=== PATIENT | male | born 1995 | race Caucasian/White ===

== ENCOUNTER 2017-04-11 17:37 | Inpatient (IN) | payer OTHER ==
[2017-04-11] MEDS: ONDANSETRON 4 MG INJ IV ×2 (21:01→22:00)
[2017-04-11] MEDS: SOD CHLORIDE 0.9% 1,000 ML IV ×2 (21:02→21:06)
[2017-04-11 21:37] LABS: MODE ROOM AIR; MetHgb Venous 1.7 %; Sample Type Blood venous; Site VENOUS LINE; Venous COHb 0.3 %; Venous Fraction OxyHgb 18.1 %; Venous Oxygen Sat 18.5 mmHG (55.0-75.0); Venous Total Hemglobin 15.4 g/dl
[2017-04-11 21:42] LABS: ADD MAN DIFF? NO
[2017-04-11 21:45] LABS: BASOPHILS % 0.1 % (0.0-2.0); EOSINOPHILS # 0.2 10^3/ul (0.0-0.5); EOSINOPHILS % 2.9 % (0.0-7.0); HEMATOCRIT 45.5 % (42.0-52.0); HEMOGLOBIN 15.4 g/dl (14.0-18.0); LYMPHOCYTES # 3.5 10^3/ul (0.8-2.9); MEAN CORPUSCULAR HEMOGLOBIN 30.3 pg (29.0-33.0); MEAN CORPUSCULAR HGB CONC 33.8 g/dl (32.0-37.0); MEAN CORPUSCULAR VOLUME 89.4 fl (82.0-101.0); MEAN PLATELET VOLUME 12.2 fl (7.4-10.4); MONOCYTE # 0.6 10^3/ul (0.3-0.9); MONOCYTES % 7.3 % (0.0-11.0); NEUTROPHIL # 3.9 10^3/ul (1.6-7.5); NEUTROPHILS % 47.6 % (39.0-77.0); PLATELET COUNT 147 10^3/UL (140-415); RED BLOOD COUNT 5.09 10^6/ul (4.70-6.10); RED CELL DISTRIBUTION WIDTH 11.9 % (11.5-14.5)
[2017-04-11 21:45] LABS: WHITE BLOOD COUNT 8.2 10^3/ul (4.8-10.8)
[2017-04-11 22:07] LABS: ANION GAP 27 (8-16); BLOOD UREA NITROGEN 21 mg/dl (7-20); CARBON DIOXIDE 12 mmol/L (21-31); CHLORIDE 99 mmol/L (97-110); CREATININE 1.16 mg/dl (0.61-1.24); GLUCOSE 380 mg/dl (70-220); POTASSIUM 4.9 mmol/L (3.5-5.1); SODIUM 133 mmol/L (135-144)
[2017-04-11] MEDS: LORAZEPAM 2 MG INJ IV (22:52)
[2017-04-11 23:17] LABS: MAGNESIUM 1.3 mg/dl (1.7-2.5)
[2017-04-11] MEDS: INSULIN HUMAN REGULAR 100 UNIT in SOD CHLORIDE 0.9% 99 ML IV (23:19)
[2017-04-11] MEDS: POTASSIUM CHLORIDE 30 MEQ in SOD CHLORIDE 0.9% 1,000 ML IV (23:24)
[2017-04-11] MEDS ORDERED: ACETAMINOPHEN 500 MG TAB PO (23:30)
[2017-04-11] MEDS ORDERED: hydrALAzine 20 MG INJ IV (23:30)
[2017-04-11] MEDS: METHYLPREDNISOLONE 40 MG INJ IV (23:37)
[2017-04-12 00:05] LABS: ADD UMIC NO; UR ASCORBIC ACID NEGATIVE (NEGATIVE); UR BILIRUBIN (Dip) NEGATIVE (NEGATIVE); UR BLOOD (Dip) NEGATIVE (NEGATIVE); UR CLARITY CLEAR (CLEAR); UR COLOR YELLOW (YELLOW); UR GLUCOSE (Dip) 3+ mg/dL (NEGATIVE); UR KETONES (Dip) 2+ mg/dL (NEGATIVE); UR LEUKOCYTE ESTERASE (Dip) NEGATIVE Leu/ul (NEGATIVE); UR NITRITE (Dip) NEGATIVE (NEGATIVE); UR SPECIFIC GRAVITY (Dip) 1.015 (1.003-1.030); UR TOTAL PROTEIN (Dip) NEGATIVE (NEGATIVE); UR UROBILINOGEN (Dip) NEGATIVE (NEGATIVE)
[2017-04-12] MEDS: HYDROCORTISONE 5 MG TAB PO ×4 (00:07→20:26)
[2017-04-12 01:14] LABS: ANION GAP 21 (8-16); BLOOD UREA NITROGEN 20 mg/dl (7-20); CALCIUM 9.5 mg/dl (8.4-10.2); CARBON DIOXIDE 15 mmol/L (21-31); CHLORIDE 106 mmol/L (97-110); GLUCOSE 272 mg/dl (70-220); SODIUM 136 mmol/L (135-144)
[2017-04-12] MEDS ORDERED: DEXTROSE 50% 50 ML SYRINGE IV ×2 (01:30)
[2017-04-12] MEDS ORDERED: POTASSIUM CHLORIDE 50 ML IVPB (01:30)
[2017-04-12] MEDS: ACCU-CHEK XX ×17 (01:59→20:25)
[2017-04-12 02:36] LABS: GLUCOSE, FASTING 125 mg/dl (70-110); PHOSPHORUS 1.5 mg/dl (2.5-4.9)
[2017-04-12] MEDS: DEXTROSE 5%-0.9% NACL 1,000 ML IV (02:36)
[2017-04-12 02:37] LABS: ANION GAP 15 (8-16); BLOOD UREA NITROGEN 19 mg/dl (7-20); CALCIUM 9.9 mg/dl (8.4-10.2); CARBON DIOXIDE 20 mmol/L (21-31); CHLORIDE 108 mmol/L (97-110); CREATININE 0.97 mg/dl (0.61-1.24); GLUCOSE 124 mg/dl (70-220); POTASSIUM 4.2 mmol/L (3.5-5.1); SODIUM 139 mmol/L (135-144)
[2017-04-12] MEDS: INSULIN HUMAN REGULAR 100 UNIT in SOD CHLORIDE 0.9% 99 ML IV ×2 (02:40→08:19)
[2017-04-12 02:46] LABS: MAGNESIUM 1.2 mg/dl (1.7-2.5)
[2017-04-12] MEDS: POTASSIUM CHLORIDE 30 MEQ in DEXTROSE 5%-0.9% NACL 1,000 ML IV ×4 (03:25→13:31)
[2017-04-12] MEDS: MAGNESIUM SULFATE 2 GM/50 ML 50 ML IVPB (04:29)
[2017-04-12 05:11] LABS: ANION GAP 11 (8-16); BLOOD UREA NITROGEN 16 mg/dl (7-20); CALCIUM 9.5 mg/dl (8.4-10.2); CARBON DIOXIDE 21 mmol/L (21-31); CHLORIDE 113 mmol/L (97-110); GLUCOSE 89 mg/dl (70-220); POTASSIUM 3.6 mmol/L (3.5-5.1); SODIUM 141 mmol/L (135-144)
[2017-04-12] MEDS: PANTOPRAZOLE 40 MG INJ IV (06:07)
[2017-04-12] MEDS: METHYLPREDNISOLONE 40 MG INJ IV ×2 (06:07→13:40)
[2017-04-12] MEDS: POTASSIUM PHOSPHATE 15 MM in SOD CHLORIDE 0.9% 250 ML IVPB (06:07)
[2017-04-12] MEDS: POTASSIUM CHLORIDE 100 ML IVPB (06:07)
[2017-04-12 07:02] LABS: ANION GAP 12 (8-16); BLOOD UREA NITROGEN 15 mg/dl (7-20); CALCIUM 9.4 mg/dl (8.4-10.2); CARBON DIOXIDE 20 mmol/L (21-31); CHLORIDE 113 mmol/L (97-110); CREATININE 0.79 mg/dl (0.61-1.24); GLUCOSE 121 mg/dl (70-220); POTASSIUM 3.9 mmol/L (3.5-5.1); SODIUM 141 mmol/L (135-144)
[2017-04-12] MEDS: POTASSIUM CHLORIDE (SR) 10 MEQ TAB PO (09:23)
[2017-04-12] MEDS: INSULIN GLARGINE [LANtus] 3 ML PEN SC (10:35)
[2017-04-12] MEDS: INSULIN ASPART [NOVOLOG] 3 ML PEN SC ×4 (12:17→20:28)
[2017-04-12 15:29] LABS: THYROID STIMULATING HORMONE < 0.015 MIU/L (0.465-4.680)
[2017-04-12] MEDS: ONDANSETRON 4 MG INJ IV (19:00)
[2017-04-13] MEDS: POTASSIUM CHLORIDE 30 MEQ in DEXTROSE 5%-0.9% NACL 1,000 ML IV (00:58)
[2017-04-13] MEDS: ACCU-CHEK XX ×19 (01:56→23:00)
[2017-04-13] MEDS: ONDANSETRON 4 MG INJ IV (02:29)
[2017-04-13] MEDS: INSULIN ASPART [NOVOLOG] 3 ML PEN SC ×2 (04:56→06:31)
[2017-04-13 04:57] LABS: ADD MAN DIFF? NO; BASOPHILS % 0.1 % (0.0-2.0); HEMATOCRIT 32.2 % (42.0-52.0); HEMOGLOBIN 10.9 g/dl (14.0-18.0); LYMPHOCYTES # 1.4 10^3/ul (0.8-2.9); LYMPHOCYTES % 11.4 % (15.0-51.0); MEAN CORPUSCULAR HEMOGLOBIN 30.6 pg (29.0-33.0); MEAN CORPUSCULAR HGB CONC 33.9 g/dl (32.0-37.0); MEAN CORPUSCULAR VOLUME 90.4 fl (82.0-101.0); MEAN PLATELET VOLUME 12.6 fl (7.4-10.4); MONOCYTE # 0.8 10^3/ul (0.3-0.9); MONOCYTES % 6.4 % (0.0-11.0); NEUTROPHIL # 9.8 10^3/ul (1.6-7.5); NEUTROPHILS % 81.8 % (39.0-77.0); PLATELET COUNT 161 10^3/UL (140-415); RED BLOOD COUNT 3.56 10^6/ul (4.70-6.10); RED CELL DISTRIBUTION WIDTH 12.7 % (11.5-14.5)
[2017-04-13] MEDS: PANTOPRAZOLE 40 MG INJ IV (05:12)
[2017-04-13 05:42] LABS: PHOSPHORUS 4.2 mg/dl (2.5-4.9)
[2017-04-13 05:43] LABS: BLOOD UREA NITROGEN 19 mg/dl (7-20); CALCIUM 9.7 mg/dl (8.4-10.2); CHLORIDE 109 mmol/L (97-110); CREATININE 1.07 mg/dl (0.61-1.24); MAGNESIUM 1.3 mg/dl (1.7-2.5); SODIUM 133 mmol/L (135-144)
[2017-04-13] MEDS: morphine 2 MG INJ IV (05:53)
[2017-04-13] MEDS: POTASSIUM CHLORIDE 30 MEQ in SOD CHLORIDE 0.45% 1,000 ML IV (06:05)
[2017-04-13 06:15] LABS: CARBON DIOXIDE 9 mmol/L (21-31)
[2017-04-13 06:17] LABS: GLUCOSE 532 mg/dl (70-220)
[2017-04-13 06:32] LABS: ANION GAP 22 (8-16)
[2017-04-13] MEDS ORDERED: DEXTROSE 50% 50 ML SYRINGE IV ×2 (07:00)
[2017-04-13] MEDS ORDERED: POTASSIUM CHLORIDE 50 ML IVPB (07:00)
[2017-04-13 07:24] LABS: POTASSIUM 6.5 mmol/L (3.5-5.1)
[2017-04-13] MEDS: INSULIN HUMAN REGULAR 100 UNIT in SOD CHLORIDE 0.9% 99 ML IV (07:30)
[2017-04-13] MEDS ORDERED: INSULIN GLARGINE [LANtus] 3 ML PEN SC (08:00)
[2017-04-13] MEDS: SOD CHLORIDE 0.9% 1,000 ML IV ×3 (08:13→21:10)
[2017-04-13] MEDS: MAGNESIUM SULFATE 2 GM/50 ML 50 ML IVPB (08:14)
[2017-04-13] MEDS: HYDROCORTISONE 5 MG TAB PO ×3 (10:27→21:08)
[2017-04-14] MEDS: ACCU-CHEK XX ×12 (01:00→19:42)
[2017-04-14] MEDS: PANTOPRAZOLE 40 MG INJ IV (05:34)
[2017-04-14] MEDS: SOD CHLORIDE 0.9% 1,000 ML IV (06:20)
[2017-04-14] MEDS: HYDROCORTISONE 5 MG TAB PO ×3 (08:12→20:48)
[2017-04-14] MEDS ORDERED: GLUCAGON 1 MG INJ IM (09:00)
[2017-04-14] MEDS ORDERED: GLUCOSE GEL 15 GRAM TUBE PO ×2 (09:00)
[2017-04-14] MEDS ORDERED: DEXTROSE 50% 50 ML SYRINGE IV (09:00)
[2017-04-14] MEDS ORDERED: GLUCOSE GEL 15 GRAM TUBE BUCCAL (09:00)
[2017-04-14 09:26] LABS: ANION GAP 13 (8-16); BLOOD UREA NITROGEN 11 mg/dl (7-20); CALCIUM 8.3 mg/dl (8.4-10.2); CARBON DIOXIDE 17 mmol/L (21-31); CHLORIDE 109 mmol/L (97-110); CREATININE 0.68 mg/dl (0.61-1.24); GLUCOSE 257 mg/dl (70-220); POTASSIUM 4.4 mmol/L (3.5-5.1); SODIUM 135 mmol/L (135-144)
[2017-04-14] MEDS: INSULIN DETEMIR [LEVEMIR] 3ML CART SC ×2 (09:41→21:30)
[2017-04-14] MEDS: INSULIN ASPART [NOVOLOG] 3 ML PEN SC ×5 (10:47→20:53)
[2017-04-14] MEDS ORDERED: INSULIN ASPART [NOVOLOG] 3 ML PEN SC ×3 (17:05)
[2017-04-14] MEDS: DEXTROSE 50% 50 ML SYRINGE IV (20:56)
[2017-04-15] MEDS: SOD CHLORIDE 0.9% 1,000 ML IV ×3 (03:38→20:00)
[2017-04-15] MEDS: PANTOPRAZOLE 40 MG INJ IV (06:00)
[2017-04-15 06:43] LABS: ANION GAP 12 (8-16); BLOOD UREA NITROGEN 8 mg/dl (7-20); CALCIUM 8.5 mg/dl (8.4-10.2); CARBON DIOXIDE 24 mmol/L (21-31); CHLORIDE 107 mmol/L (97-110); CREATININE 0.66 mg/dl (0.61-1.24); GLUCOSE 118 mg/dl (70-220); POTASSIUM 4.1 mmol/L (3.5-5.1); SODIUM 139 mmol/L (135-144)
[2017-04-15] MEDS ORDERED: INSULIN DETEMIR [LEVEMIR] 3ML CART SC ×3 (08:00→17:30)
[2017-04-15] MEDS: HYDROCORTISONE 5 MG TAB PO ×3 (08:19→20:35)
[2017-04-15] MEDS: INSULIN ASPART [NOVOLOG] 3 ML PEN SC ×7 (08:23→20:38)
[2017-04-15] MEDS: ACCU-CHEK XX ×4 (10:19→20:33)
[2017-04-15 12:40] LABS: ADD MAN DIFF? NO
[2017-04-15 12:42] LABS: WHITE BLOOD COUNT 6.1 10^3/ul (4.8-10.8)
[2017-04-15 12:42] LABS: EOSINOPHILS # 0.1 10^3/ul (0.0-0.5); EOSINOPHILS % 1.6 % (0.0-7.0); HEMATOCRIT 35.9 % (42.0-52.0); HEMOGLOBIN 12.5 g/dl (14.0-18.0); LYMPHOCYTES # 2.2 10^3/ul (0.8-2.9); LYMPHOCYTES % 35.3 % (15.0-51.0); MEAN CORPUSCULAR HEMOGLOBIN 30.2 pg (29.0-33.0); MEAN CORPUSCULAR HGB CONC 34.8 g/dl (32.0-37.0); MEAN CORPUSCULAR VOLUME 86.7 fl (82.0-101.0); MEAN PLATELET VOLUME 12.1 fl (7.4-10.4); MONOCYTE # 0.4 10^3/ul (0.3-0.9); MONOCYTES % 5.7 % (0.0-11.0); NEUTROPHIL # 3.5 10^3/ul (1.6-7.5); NEUTROPHILS % 57.2 % (39.0-77.0); PLATELET COUNT 155 10^3/UL (140-415); RED BLOOD COUNT 4.14 10^6/ul (4.70-6.10); RED CELL DISTRIBUTION WIDTH 11.8 % (11.5-14.5)
[2017-04-15 13:01] LABS: ANION GAP 12 (8-16); BLOOD UREA NITROGEN 11 mg/dl (7-20); CARBON DIOXIDE 23 mmol/L (21-31); CHLORIDE 104 mmol/L (97-110); CREATININE 0.71 mg/dl (0.61-1.24); GLUCOSE 308 mg/dl (70-220); POTASSIUM 4.3 mmol/L (3.5-5.1); SODIUM 135 mmol/L (135-144)
[2017-04-15] MEDS: NPH, HUMAN INSULIN ISOPHANE 3ML VIAL SC (13:48)
[2017-04-15 14:51] LABS: CREATININE, RANDOM URINE 121 mg/dL (20-370); MICROALBUMIN 0.7 mg/dL; MICROALBUMIN/CREATININE RATIO 6 (<30)
[2017-04-15] MEDS: INSULIN DETEMIR [LEVEMIR] 3ML CART SC (21:39)
[2017-04-16] MEDS: SOD CHLORIDE 0.9% 1,000 ML IV ×3 (02:13→16:00)
[2017-04-16] MEDS: PANTOPRAZOLE 40 MG INJ IV (05:53)
[2017-04-16 06:04] LABS: ADD MAN DIFF? NO
[2017-04-16 06:11] LABS: BASOPHILS % 0.3 % (0.0-2.0); EOSINOPHILS # 0.2 10^3/ul (0.0-0.5); EOSINOPHILS % 3.7 % (0.0-7.0); HEMATOCRIT 33.6 % (42.0-52.0); HEMOGLOBIN 11.9 g/dl (14.0-18.0); LYMPHOCYTES # 3.5 10^3/ul (0.8-2.9); LYMPHOCYTES % 52.9 % (15.0-51.0); MEAN CORPUSCULAR HEMOGLOBIN 30.2 pg (29.0-33.0); MEAN CORPUSCULAR HGB CONC 35.4 g/dl (32.0-37.0); MEAN CORPUSCULAR VOLUME 85.3 fl (82.0-101.0); MEAN PLATELET VOLUME 12.6 fl (7.4-10.4); MONOCYTE # 0.5 10^3/ul (0.3-0.9); MONOCYTES % 7.5 % (0.0-11.0); NEUTROPHIL # 2.3 10^3/ul (1.6-7.5); NEUTROPHILS % 35.4 % (39.0-77.0); PLATELET COUNT 163 10^3/UL (140-415); RED BLOOD COUNT 3.94 10^6/ul (4.70-6.10); RED CELL DISTRIBUTION WIDTH 11.5 % (11.5-14.5)
[2017-04-16 06:11] LABS: WHITE BLOOD COUNT 6.6 10^3/ul (4.8-10.8)
[2017-04-16 06:41] LABS: MAGNESIUM 1.3 mg/dl (1.7-2.5)
[2017-04-16 06:41] LABS: ANION GAP 12 (8-16); BLOOD UREA NITROGEN 11 mg/dl (7-20); CALCIUM 8.5 mg/dl (8.4-10.2); CARBON DIOXIDE 24 mmol/L (21-31); CHLORIDE 108 mmol/L (97-110); CREATININE 0.67 mg/dl (0.61-1.24); GLUCOSE 77 mg/dl (70-220); POTASSIUM 3.3 mmol/L (3.5-5.1); SODIUM 141 mmol/L (135-144)
[2017-04-16] MEDS: INSULIN ASPART [NOVOLOG] 3 ML PEN SC ×6 (08:15→17:17)
[2017-04-16] MEDS: HYDROCORTISONE 5 MG TAB PO ×2 (08:21→12:03)
[2017-04-16] MEDS: ACCU-CHEK XX ×5 (08:22→17:15)
[2017-04-16] MEDS: POTASSIUM CHLORIDE 20 MEQ POWDER FOR ORAL SOLN PO (12:04)
[2017-04-16] MEDS: MAGNESIUM SULFATE 4 GM/100 ML 100 ML IVPB (13:24)
[2017-04-16] MEDS ORDERED: INSULIN DETEMIR [LEVEMIR] 3ML CART SC (21:00)
== END 2017-04-16 18:40 | disposition home or self-care (01) | DRG 638 ==
LOC: ICU 23:03 → E/R 17:37 → MS2 04-15 14:45 → MS1 04-12 16:32
PROVIDERS: Internal Medicine
DX: E10.10 Type 1 diabetes mellitus with ketoacidosis without coma (principal); E27.40 Unspecified adrenocortical insufficiency; E31.0 Autoimmune polyglandular failure; E03.9 Hypothyroidism, unspecified; Z83.3 Family history of diabetes mellitus
CPT/HCPCS: 36415; 74176; 80048; 81003; 82043; 82803; 82947; 82962; 83036; 83735; 84100; 84443; 85025; 87081; 96361; 96365; 96366; 96375; 96376; 99291-25

== ENCOUNTER 2017-06-12 20:30 | Inpatient (IN) | payer OTHER ==
[2017-06-12] MEDS: FAMOTIDINE 20 MG INJ IV (21:29)
[2017-06-12] MEDS: ONDANSETRON 4 MG INJ IV (21:29)
[2017-06-12] MEDS: SOD CHLORIDE 0.9% 1,000 ML IV ×4 (21:29→23:48)
[2017-06-12] MEDS: morphine 2 MG INJ IV (21:29)
[2017-06-12 21:41] LABS: ADD MAN DIFF? NO
[2017-06-12 21:42] LABS: WHITE BLOOD COUNT 10.6 10^3/ul (4.8-10.8)
[2017-06-12 21:42] LABS: BASOPHILS % 0.2 % (0.0-2.0); EOSINOPHILS # 0.2 10^3/ul (0.0-0.5); HEMATOCRIT 45.9 % (42.0-52.0); HEMOGLOBIN 15.9 g/dl (14.0-18.0); LYMPHOCYTES # 3.7 10^3/ul (0.8-2.9); LYMPHOCYTES % 34.8 % (15.0-51.0); MEAN CORPUSCULAR HEMOGLOBIN 29.9 pg (29.0-33.0); MEAN CORPUSCULAR HGB CONC 34.6 g/dl (32.0-37.0); MEAN CORPUSCULAR VOLUME 86.3 fl (82.0-101.0); MEAN PLATELET VOLUME 12.7 fl (7.4-10.4); MONOCYTE # 0.8 10^3/ul (0.3-0.9); MONOCYTES % 7.1 % (0.0-11.0); NEUTROPHIL # 5.9 10^3/ul (1.6-7.5); NEUTROPHILS % 55.6 % (39.0-77.0); PLATELET COUNT 247 10^3/UL (140-415); RED BLOOD COUNT 5.32 10^6/ul (4.70-6.10); RED CELL DISTRIBUTION WIDTH 12.3 % (11.5-14.5)
[2017-06-12 22:07] LABS: ALANINE AMINOTRANSFERASE 21 IU/L (13-69); ALBUMIN 4.9 g/dl (3.3-4.9); ALBUMIN/GLOBULIN RATIO 1.58; ALKALINE PHOSPHATASE 103 IU/L (42-121); ANION GAP 28 (8-16); ASPARTATE AMINO TRANSFERASE 29 IU/L (15-46); BILIRUBIN,INDIRECT 0.6 mg/dl (0-1.1); BILIRUBIN,TOTAL 0.6 mg/dl (0.2-1.3); BLOOD UREA NITROGEN 21 mg/dl (7-20); CALCIUM 10.5 mg/dl (8.4-10.2); CARBON DIOXIDE 16 mmol/L (21-31); CHLORIDE 98 mmol/L (97-110); CREATININE 1.33 mg/dl (0.61-1.24); GLUCOSE 340 mg/dl (70-220); LIPASE 40 U/L (23-300); SODIUM 135 mmol/L (135-144)
[2017-06-12 22:12] LABS: POTASSIUM 6.6 mmol/L (3.5-5.1)
[2017-06-12] MEDS: NA POLYST SULFON 15 GM/60 ML BTL PO (22:26)
[2017-06-12] MEDS: CA CHLORIDE 10% 10 ML SYRINGE IV (22:26)
[2017-06-12] MEDS: NA BICARBONATE 8.4% 50 ML SYG IV (22:26)
[2017-06-12] MEDS: ALBUTEROL 0.5% (NEB) 2.5 MG/0.5 ML AMP INH (22:27)
[2017-06-12] MEDS: INSULIN REGULAR, HUMAN 100 UNIT/1 ML 3ML VIAL IVP (22:33)
[2017-06-12] MEDS: INSULIN HUMAN REGULAR 100 UNIT in SOD CHLORIDE 0.9% 99 ML IV (22:49)
[2017-06-12] MEDS ORDERED: DEXTROSE 50% 50 ML SYRINGE IV (23:00)
[2017-06-12] MEDS ORDERED: morphine 2 MG INJ IV (23:00)
[2017-06-12 23:27] LABS: ADD UMIC NO; UR ASCORBIC ACID NEGATIVE (NEGATIVE); UR BILIRUBIN (Dip) NEGATIVE (NEGATIVE); UR BLOOD (Dip) NEGATIVE (NEGATIVE); UR CLARITY CLEAR (CLEAR); UR COLOR STRAW (YELLOW); UR GLUCOSE (Dip) 3+ mg/dL (NEGATIVE); UR KETONES (Dip) 2+ mg/dL (NEGATIVE); UR LEUKOCYTE ESTERASE (Dip) NEGATIVE Leu/ul (NEGATIVE); UR NITRITE (Dip) NEGATIVE (NEGATIVE); UR SPECIFIC GRAVITY (Dip) 1.009 (1.003-1.030); UR TOTAL PROTEIN (Dip) NEGATIVE (NEGATIVE); UR UROBILINOGEN (Dip) NEGATIVE (NEGATIVE)
[2017-06-12] MEDS: ACCU-CHEK XX (23:29)
[2017-06-12] MEDS: LACTATED RINGER'S 1,000 ML IV (23:43)
[2017-06-12] MEDS ORDERED: INSULIN HUMAN REGULAR 100 UNIT in SOD CHLORIDE 0.9% 99 ML IV (23:45)
[2017-06-13 00:07] LABS: HEMOGLOBIN A1C 7.7 % (0-5.9)
[2017-06-13] MEDS: ACCU-CHEK XX ×8 (00:09→12:27)
[2017-06-13] MEDS: METOCLOPRAMIDE 10 MG INJ IV (00:12)
[2017-06-13 00:16] LABS: GLUCOSE, FASTING 181 mg/dl (70-110); PHOSPHORUS 2.8 mg/dl (2.5-4.9)
[2017-06-13] MEDS: DEXTROSE 5%-LR 1,000 ML IV ×2 (00:19→04:00)
[2017-06-13 00:35] LABS: ANION GAP 23 (8-16); BLOOD UREA NITROGEN 20 mg/dl (7-20); CALCIUM 10.7 mg/dl (8.4-10.2); CARBON DIOXIDE 13 mmol/L (21-31); CHLORIDE 108 mmol/L (97-110); CREATININE 1.02 mg/dl (0.61-1.24); POTASSIUM 4.1 mmol/L (3.5-5.1); SODIUM 140 mmol/L (135-144)
[2017-06-13 00:36] LABS: GLUCOSE 181 mg/dl (70-220)
[2017-06-13] MEDS: DEXTROSE 50% 50 ML SYRINGE IV (02:34)
[2017-06-13] MEDS: SOD CHLORIDE 0.9% 1,000 ML IV ×4 (02:43→09:00)
[2017-06-13 03:48] LABS: ANION GAP 16 (8-16); BLOOD UREA NITROGEN 19 mg/dl (7-20); CALCIUM 9.9 mg/dl (8.4-10.2); CARBON DIOXIDE 22 mmol/L (21-31); CHLORIDE 109 mmol/L (97-110); CREATININE 1.05 mg/dl (0.61-1.24); POTASSIUM 3.9 mmol/L (3.5-5.1); SODIUM 143 mmol/L (135-144)
[2017-06-13 03:56] LABS: GLUCOSE 43 mg/dl (70-220)
[2017-06-13] MEDS: SOD CHLORIDE 0.9% 500 ML IV (04:41)
[2017-06-13 06:13] LABS: PHOSPHORUS 3.3 mg/dl (2.5-4.9)
[2017-06-13] MEDS: ENOXAPARIN 30 MG/0.3 ML SYG SC (09:35)
[2017-06-13 11:35] LABS: MODE ROOM AIR; MetHgb Venous 0.4 %; Sample Type Blood venous; Site VENOUS LINE; Venous COHb 0.2 %; Venous Fraction OxyHgb 68.5 %; Venous Oxygen Sat 68.9 mmHG (55.0-75.0); Venous Total Hemglobin 13.9 g/dl
[2017-06-13] MEDS ORDERED: GLUCAGON 1 MG INJ IM (14:00)
[2017-06-13] MEDS ORDERED: GLUCOSE GEL 15 GRAM TUBE PO ×2 (14:00)
[2017-06-13] MEDS ORDERED: GLUCOSE GEL 15 GRAM TUBE BUCCAL (14:00)
[2017-06-13] MEDS ORDERED: DEXTROSE 50% 50 ML SYRINGE IV ×2 (14:00)
[2017-06-13] MEDS ORDERED: METOCLOPRAMIDE 10 MG INJ IV (15:00)
[2017-06-13] MEDS: PANTOPRAZOLE (EC) 40 MG TAB PO (17:00)
[2017-06-13] MEDS: PT'S OWN INSULIN PUMP (Humalog) SC ×2 (17:01→20:43)
[2017-06-13] MEDS: ACETAMINOPHEN 650MG/20.3ML CUP PO (18:39)
[2017-06-14] MEDS: PANTOPRAZOLE (EC) 40 MG TAB PO (06:00)
[2017-06-14] MEDS: PT'S OWN INSULIN PUMP (Humalog) SC ×4 (07:20→20:59)
[2017-06-14] MEDS: ENOXAPARIN 30 MG/0.3 ML SYG SC (08:55)
[2017-06-14 13:38] LABS: ALANINE AMINOTRANSFERASE 20 IU/L (13-69); ALBUMIN 3.3 g/dl (3.3-4.9); ALBUMIN/GLOBULIN RATIO 1.17; ALKALINE PHOSPHATASE 65 IU/L (42-121); ANION GAP 15 (8-16); ASPARTATE AMINO TRANSFERASE 20 IU/L (15-46); BILIRUBIN,INDIRECT 0.4 mg/dl (0-1.1); BILIRUBIN,TOTAL 0.4 mg/dl (0.2-1.3); BLOOD UREA NITROGEN 9 mg/dl (7-20); CALCIUM 8.6 mg/dl (8.4-10.2); CARBON DIOXIDE 22 mmol/L (21-31); CHLORIDE 107 mmol/L (97-110); CREATININE 0.81 mg/dl (0.61-1.24); GLUCOSE 109 mg/dl (70-220); POTASSIUM 3.9 mmol/L (3.5-5.1); SODIUM 140 mmol/L (135-144); TOTAL PROTEIN 6.1 g/dl (6.1-8.1)
[2017-06-14 13:47] LABS: CREATININE, RANDOM URINE 54 mg/dL (20-370); MICROALBUMIN 0.2 mg/dL; MICROALBUMIN/CREATININE RATIO 4 (<30)
[2017-06-14] MEDS: HYDROCORTISONE 5 MG TAB PO ×2 (14:55→20:56)
[2017-06-14 17:11] LABS: MAGNESIUM 1.2 mg/dl (1.7-2.5)
[2017-06-14] MEDS: MAGNESIUM SULFATE 4 GM/100 ML 100 ML IVPB (19:55)
[2017-06-14] MEDS: INSULIN LISPRO 100 UNIT/ML VIAL SC (20:00)
[2017-06-15 06:14] LABS: ANION GAP 16 (8-16); THYROID STIMULATING HORMONE 0.022 MIU/L (0.465-4.680)
[2017-06-15 06:15] LABS: BLOOD UREA NITROGEN 10 mg/dl (7-20); CALCIUM 8.9 mg/dl (8.4-10.2); CARBON DIOXIDE 19 mmol/L (21-31); CHLORIDE 110 mmol/L (97-110); CREATININE 0.82 mg/dl (0.61-1.24); GLUCOSE 111 mg/dl (70-220); PHOSPHORUS 4.4 mg/dl (2.5-4.9); POTASSIUM 4.1 mmol/L (3.5-5.1); SODIUM 141 mmol/L (135-144)
[2017-06-15] MEDS: PANTOPRAZOLE (EC) 40 MG TAB PO (06:15)
[2017-06-15 06:42] LABS: ADD MAN DIFF? NO
[2017-06-15 07:10] LABS: FREE THYROXINE INDEX (Calc) 2.35 ug/ml (0.65-3.89); T4 (THYROXINE) 6.7 ug/dl (5.5-11.0)
[2017-06-15] MEDS: PT'S OWN INSULIN PUMP (Humalog) SC ×2 (07:56→11:10)
[2017-06-15] MEDS: HYDROCORTISONE 5 MG TAB PO ×2 (09:36→15:42)
[2017-06-15] MEDS: ENOXAPARIN 30 MG/0.3 ML SYG SC (09:40)
[2017-06-15 09:55] LABS: HEMATOCRIT 33.7 % (42.0-52.0); HEMOGLOBIN 11.9 g/dl (14.0-18.0); MEAN CORPUSCULAR HEMOGLOBIN 30.3 pg (29.0-33.0); MEAN CORPUSCULAR HGB CONC 35.3 g/dl (32.0-37.0); MEAN CORPUSCULAR VOLUME 85.8 fl (82.0-101.0); RED BLOOD COUNT 3.93 10^6/ul (4.70-6.10); RED CELL DISTRIBUTION WIDTH 12.4 % (11.5-14.5)
[2017-06-15 09:55] LABS: WHITE BLOOD COUNT 6.4 10^3/ul (4.8-10.8)
[2017-06-15 09:56] LABS: LYMPHOCYTES % 38.7 % (15.0-51.0); MEAN PLATELET VOLUME 12.6 fl (7.4-10.4); MONOCYTES % 6.7 % (0.0-11.0); PLATELET COUNT 150 10^3/UL (140-415)
[2017-06-15 09:57] LABS: EOSINOPHILS # 0.2 10^3/ul (0.0-0.5); EOSINOPHILS % 3.1 % (0.0-7.0); LYMPHOCYTES # 2.5 10^3/ul (0.8-2.9); MONOCYTE # 0.4 10^3/ul (0.3-0.9); NEUTROPHIL # 3.3 10^3/ul (1.6-7.5)
[2017-06-15 09:58] LABS: BASOPHILS % 0.3 % (0.0-2.0)
[2017-06-15 13:30] LABS: MAGNESIUM 2.1 mg/dl (1.7-2.5)
== END 2017-06-15 17:29 | disposition home or self-care (01) | DRG 638 ==
LOC: ICU 22:45 → E/R 20:30 → MS1 06-13 17:45
PROVIDERS: Internal Medicine
DX: E10.10 Type 1 diabetes mellitus with ketoacidosis without coma (principal); E27.40 Unspecified adrenocortical insufficiency; E31.0 Autoimmune polyglandular failure; E06.3 Autoimmune thyroiditis; E83.42 Hypomagnesemia; Z79.4 Long term (current) use of insulin; Z96.41 Presence of insulin pump (external) (internal)
CPT/HCPCS: 36415; 80048; 80053; 81003; 82043; 82803; 82947; 82962; 83036; 83690; 83735; 84100; 84436; 84443; 84479; 85025; 87081; 93005; 94664; 96361; 96365; 96366; 96375; 99291-25

== ENCOUNTER 2017-11-17 00:44 | Inpatient (IN) | payer OTHER ==
[2017-11-17] MEDS: ONDANSETRON 4 MG INJ IV ×2 (02:05→02:27)
[2017-11-17] MEDS: SOD CHLORIDE 0.9% 1,000 ML IV ×8 (02:06→23:00)
[2017-11-17] MEDS: SOD CHLORIDE 0.9% 680 ML IV (02:06)
[2017-11-17 02:09] LABS: ADD MAN DIFF? NO
[2017-11-17 02:12] LABS: ABNORMAL IP MESSAGE 1; BASOPHIL # 0.1 10^3/ul (0.0-0.1); BASOPHILS % 0.3 % (0.0-2.0); EOSINOPHILS # 0.3 10^3/ul (0.0-0.5); EOSINOPHILS % 1.4 % (0.0-7.0); HEMATOCRIT 43.2 % (42.0-52.0); HEMOGLOBIN 14.9 g/dl (14.0-18.0); LYMPHOCYTES # 3.2 10^3/ul (0.8-2.9); LYMPHOCYTES % 17.8 % (15.0-51.0); MEAN CORPUSCULAR HEMOGLOBIN 30.5 pg (29.0-33.0); MEAN CORPUSCULAR HGB CONC 34.5 g/dl (32.0-37.0); MEAN CORPUSCULAR VOLUME 88.3 fl (82.0-101.0); MEAN PLATELET VOLUME 13.3 fl (7.4-10.4); MONOCYTE # 1.1 10^3/ul (0.3-0.9); MONOCYTES % 5.8 % (0.0-11.0); NEUTROPHIL # 13.4 10^3/ul (1.6-7.5); NEUTROPHILS % 74.1 % (39.0-77.0); PLATELET COUNT 223 10^3/UL (140-415); POSITIVE DIFF @See below; RED BLOOD COUNT 4.89 10^6/ul (4.70-6.10); RED CELL DISTRIBUTION WIDTH 12.3 % (11.5-14.5)
[2017-11-17 02:12] LABS: WHITE BLOOD COUNT 18.1 10^3/ul (4.8-10.8)
[2017-11-17 02:21] LABS: MODE ROOM AIR; MetHgb Venous 0.3 %; Sample Type Blood venous; Site VENOUS LINE; Venous COHb 0.3 %; Venous Fraction OxyHgb 41.7 %; Venous Total Hemglobin 14.2 g/dl
[2017-11-17] MEDS: METOCLOPRAMIDE 10 MG INJ IV (02:27)
[2017-11-17 02:29] LABS: ALANINE AMINOTRANSFERASE 19 IU/L (13-69); ALBUMIN 4.8 g/dl (3.3-4.9); ALBUMIN/GLOBULIN RATIO 1.26; ALKALINE PHOSPHATASE 99 IU/L (42-121); ANION GAP 26 (8-16); ASPARTATE AMINO TRANSFERASE 32 IU/L (15-46); BILIRUBIN,INDIRECT 0.9 mg/dl (0-1.1); BILIRUBIN,TOTAL 0.9 mg/dl (0.2-1.3); BLOOD UREA NITROGEN 22 mg/dl (7-20); CALCIUM 10.7 mg/dl (8.4-10.2); CARBON DIOXIDE 12 mmol/L (21-31); CHLORIDE 101 mmol/L (97-110); CREATININE 1.22 mg/dl (0.61-1.24); GLUCOSE 344 mg/dl (70-220); LIPASE 40 U/L (23-300); MAGNESIUM 1.2 mg/dl (1.7-2.5); PHOSPHORUS 3.9 mg/dl (2.5-4.9); SODIUM 133 mmol/L (135-144); TOTAL PROTEIN 8.6 g/dl (6.1-8.1)
[2017-11-17 02:37] LABS: LACTIC ACID 5.2 mmol/L (0.5-2.0)
[2017-11-17 02:37] LABS: POTASSIUM 6.4 mmol/L (3.5-5.1)
[2017-11-17] MEDS ORDERED: SODIUM CHLORIDE 23.4% 77 MEQ in DEXTROSE 10% 1,000 ML IV (02:38)
[2017-11-17] MEDS ORDERED: SOD CHLORIDE 0.9% 1,000 ML IV ×2 (02:38→03:39)
[2017-11-17] MEDS ORDERED: POTASSIUM CHLORIDE 40 MEQ in SOD CHLORIDE 0.9% 1,000 ML IV ×2 (02:38→03:39)
[2017-11-17] MEDS ORDERED: SODIUM CHLORIDE 23.4% 77 MEQ, POTASSIUM CHLORIDE 40 MEQ in DEXTROSE 10% 1,000 ML IV ×2 (02:38→03:39)
[2017-11-17] MEDS ORDERED: SODIUM CHLORIDE 23.4% 77 MEQ, POTASSIUM CHLORIDE 30 MEQ in DEXTROSE 10% 1,000 ML IV ×2 (02:38→03:39)
[2017-11-17] MEDS ORDERED: POTASSIUM CHLORIDE 30 MEQ in SOD CHLORIDE 0.9% 1,000 ML IV ×2 (02:38→03:39)
[2017-11-17] MEDS ORDERED: INSULIN REGULAR, HUMAN 100 UNIT in SOD CHLORIDE 0.9% 99 ML IV (03:00)
[2017-11-17] MEDS ORDERED: DEXTROSE 50% 50 ML SYRINGE IV ×6 (03:00→17:30)
[2017-11-17] MEDS: LORAZEPAM 2 MG INJ IV (03:28)
[2017-11-17] MEDS ORDERED: morphine 2 MG INJ IV (04:00)
[2017-11-17] MEDS ORDERED: ONDANSETRON 4 MG INJ IV (04:00)
[2017-11-17] MEDS ORDERED: ACETAMINOPHEN 650MG/20.3ML CUP PO (04:00)
[2017-11-17] MEDS: CALCIUM GLUCONATE 10% 1 GM in DEXTROSE 5% 100 ML IVPB (04:08)
[2017-11-17 04:13] LABS: HEMOGLOBIN A1C 8.9 % (0-5.9)
[2017-11-17] MEDS: ACCU-CHEK XX ×16 (04:29→18:19)
[2017-11-17] MEDS: LACTATED RINGER'S 680 ML IV (04:30)
[2017-11-17 04:36] LABS: ADD UMIC NO; UR ASCORBIC ACID NEGATIVE (NEGATIVE); UR BILIRUBIN (Dip) NEGATIVE (NEGATIVE); UR BLOOD (Dip) NEGATIVE (NEGATIVE); UR CLARITY CLEAR (CLEAR); UR COLOR STRAW (YELLOW); UR GLUCOSE (Dip) 3+ mg/dL (NEGATIVE); UR KETONES (Dip) 2+ mg/dL (NEGATIVE); UR LEUKOCYTE ESTERASE (Dip) NEGATIVE Leu/ul (NEGATIVE); UR NITRITE (Dip) NEGATIVE (NEGATIVE); UR SPECIFIC GRAVITY (Dip) 1.012 (1.003-1.030); UR TOTAL PROTEIN (Dip) NEGATIVE (NEGATIVE); UR UROBILINOGEN (Dip) NEGATIVE (NEGATIVE)
[2017-11-17 04:42] LABS: ANION GAP 19 (8-16); BLOOD UREA NITROGEN 22 mg/dl (7-20); CALCIUM 8.8 mg/dl (8.4-10.2); CARBON DIOXIDE 13 mmol/L (21-31); CHLORIDE 111 mmol/L (97-110); CREATININE 0.98 mg/dl (0.61-1.24); GLUCOSE 327 mg/dl (70-220); MODE ROOM AIR; MetHgb Venous 0.4 %; SODIUM 136 mmol/L (135-144); Sample Type Blood venous; Site VENOUS LINE; Venous COHb 0.1 %; Venous Fraction OxyHgb 41.2 %; Venous Oxygen Sat 41.4 mmHG (55.0-75.0); Venous Total Hemglobin 12.7 g/dl
[2017-11-17 04:54] LABS: POTASSIUM 6.7 mmol/L (3.5-5.1)
[2017-11-17] MEDS: INSULIN REGULAR, HUMAN 100 UNIT in SOD CHLORIDE 0.9% 99 ML IV (05:52)
[2017-11-17 06:28] LABS: MODE ROOM AIR; MetHgb Venous 0.6 %; Sample Type Blood venous; Site VENOUS LINE; Venous COHb 0.1 %; Venous Fraction OxyHgb 72.8 %; Venous Oxygen Sat 73.3 mmHG (55.0-75.0); Venous Total Hemglobin 12.4 g/dl
[2017-11-17 06:44] LABS: PHOSPHORUS 3.9 mg/dl (2.5-4.9)
[2017-11-17 06:44] LABS: MAGNESIUM 1.1 mg/dl (1.7-2.5)
[2017-11-17 07:08] LABS: ANION GAP 20 (8-16); BLOOD UREA NITROGEN 21 mg/dl (7-20); CALCIUM 9.2 mg/dl (8.4-10.2); CARBON DIOXIDE 12 mmol/L (21-31); CHLORIDE 109 mmol/L (97-110); GLUCOSE 356 mg/dl (70-220); MAGNESIUM 1.1 mg/dl (1.7-2.5); PHOSPHORUS 3.9 mg/dl (2.5-4.9); SODIUM 134 mmol/L (135-144)
[2017-11-17 07:21] LABS: POTASSIUM 7.1 mmol/L (3.5-5.1)
[2017-11-17] MEDS: SODIUM CHLORIDE 23.4% 77 MEQ in DEXTROSE 10% 1,000 ML IV (09:18)
[2017-11-17] MEDS: FAMOTIDINE 20 MG INJ IV ×2 (09:23→20:58)
[2017-11-17] MEDS: ENOXAPARIN 30 MG/0.3 ML SYG SC (09:23)
[2017-11-17 10:45] LABS: MODE ROOM AIR; MetHgb Venous 0.4 %; Sample Type Blood venous; Site VENOUS LINE; Venous COHb 0.3 %; Venous Fraction OxyHgb 77.1 %; Venous Oxygen Sat 77.6 mmHG (55.0-75.0); Venous Total Hemglobin 11.1 g/dl
[2017-11-17 11:12] LABS: ANION GAP 13 (8-16); BLOOD UREA NITROGEN 20 mg/dl (7-20); CARBON DIOXIDE 18 mmol/L (21-31); CHLORIDE 112 mmol/L (97-110); CREATININE 1.09 mg/dl (0.61-1.24); GLUCOSE 145 mg/dl (70-220); MAGNESIUM 1.4 mg/dl (1.7-2.5); PHOSPHORUS 2.5 mg/dl (2.5-4.9); POTASSIUM 4.7 mmol/L (3.5-5.1); SODIUM 138 mmol/L (135-144)
[2017-11-17 11:48] LABS: CALCIUM 9.2 mg/dl (8.4-10.2)
[2017-11-17] MEDS: INSULIN GLARGINE [LANTus] (100 UNITS/ML) SYG SC (14:26)
[2017-11-17 15:12] LABS: MODE ROOM AIR; MetHgb Venous 0.5 %; Sample Type Blood venous; Site VENOUS LINE; Venous COHb 0.1 %; Venous Fraction OxyHgb 62.9 %; Venous Oxygen Sat 63.3 mmHG (55.0-75.0); Venous Total Hemglobin 10.7 g/dl
[2017-11-17 15:49] LABS: ANION GAP 10 (8-16); BLOOD UREA NITROGEN 17 mg/dl (7-20); CALCIUM 9.1 mg/dl (8.4-10.2); CARBON DIOXIDE 19 mmol/L (21-31); CHLORIDE 109 mmol/L (97-110); CREATININE 1.04 mg/dl (0.61-1.24); GLUCOSE 120 mg/dl (70-220); PHOSPHORUS 2.1 mg/dl (2.5-4.9); POTASSIUM 3.9 mmol/L (3.5-5.1); SODIUM 134 mmol/L (135-144)
[2017-11-17] MEDS ORDERED: GLUCOSE GEL 15 GRAM TUBE PO ×2 (17:30)
[2017-11-17] MEDS ORDERED: GLUCOSE GEL 15 GRAM TUBE BUCCAL (17:30)
[2017-11-17] MEDS ORDERED: GLUCAGON 1 MG INJ IM (17:30)
[2017-11-17] MEDS: INSULIN ASPART [NOVOLOG] 3 ML PEN SC ×2 (18:00→20:59)
[2017-11-17 19:26] LABS: ANION GAP 11 (8-16); BLOOD UREA NITROGEN 15 mg/dl (7-20); CALCIUM 8.9 mg/dl (8.4-10.2); CARBON DIOXIDE 19 mmol/L (21-31); CHLORIDE 106 mmol/L (97-110); CREATININE 1.05 mg/dl (0.61-1.24); GLUCOSE 147 mg/dl (70-220); PHOSPHORUS 2.7 mg/dl (2.5-4.9); SODIUM 132 mmol/L (135-144)
[2017-11-17 19:48] LABS: MAGNESIUM 0.9 mg/dl (1.7-2.5)
[2017-11-17] MEDS: SOD CHLORIDE 0.9% 500 ML IV (20:34)
[2017-11-17] MEDS: MAGNESIUM SULFATE 2 GM/50 ML 50 ML IVPB (20:48)
[2017-11-18 00:20] LABS: ANION GAP 10 (8-16); BLOOD UREA NITROGEN 14 mg/dl (7-20); CARBON DIOXIDE 17 mmol/L (21-31); CHLORIDE 109 mmol/L (97-110); CREATININE 1.05 mg/dl (0.61-1.24); GLUCOSE 116 mg/dl (70-220); MAGNESIUM 1.7 mg/dl (1.7-2.5); PHOSPHORUS 3.2 mg/dl (2.5-4.9); POTASSIUM 4.2 mmol/L (3.5-5.1); SODIUM 132 mmol/L (135-144)
[2017-11-18] MEDS: ACCU-CHEK XX (02:00)
[2017-11-18 02:58] LABS: ANION GAP 9 (8-16); BLOOD UREA NITROGEN 12 mg/dl (7-20); CALCIUM 8.3 mg/dl (8.4-10.2); CARBON DIOXIDE 19 mmol/L (21-31); CHLORIDE 110 mmol/L (97-110); CREATININE 0.98 mg/dl (0.61-1.24); GLUCOSE 127 mg/dl (70-220); MAGNESIUM 1.4 mg/dl (1.7-2.5); PHOSPHORUS 3.3 mg/dl (2.5-4.9); POTASSIUM 4.2 mmol/L (3.5-5.1); SODIUM 134 mmol/L (135-144)
[2017-11-18] MEDS: MAGNESIUM SULFATE 2 GM/50 ML 50 ML IVPB (06:07)
[2017-11-18 06:31] LABS: ANION GAP 12 (8-16); BLOOD UREA NITROGEN 13 mg/dl (7-20); CALCIUM 9.2 mg/dl (8.4-10.2); CARBON DIOXIDE 25 mmol/L (21-31); CHLORIDE 109 mmol/L (97-110); CREATININE 0.64 mg/dl (0.61-1.24); GLUCOSE 118 mg/dl (70-220); MAGNESIUM 2.2 mg/dl (1.7-2.5); POTASSIUM 3.5 mmol/L (3.5-5.1); SODIUM 142 mmol/L (135-144)
[2017-11-18] MEDS: SOD CHLORIDE 0.9% 1,000 ML IV ×3 (08:05→19:00)
[2017-11-18] MEDS: ENOXAPARIN 30 MG/0.3 ML SYG SC (08:10)
[2017-11-18] MEDS: INSULIN ASPART [NOVOLOG] 3 ML PEN SC ×4 (08:10→20:26)
[2017-11-18] MEDS: FAMOTIDINE 20 MG INJ IV ×2 (09:41→20:16)
[2017-11-18 14:07] LABS: ADD MAN DIFF? NO
[2017-11-18 14:26] LABS: LACTIC ACID 1.2 mmol/L (0.5-2.0)
[2017-11-18 14:28] LABS: ANION GAP 9 (8-16); BLOOD UREA NITROGEN 10 mg/dl (7-20); CALCIUM 8.5 mg/dl (8.4-10.2); CARBON DIOXIDE 19 mmol/L (21-31); CHLORIDE 114 mmol/L (97-110); CREATININE 0.86 mg/dl (0.61-1.24); GLUCOSE 75 mg/dl (70-220); SODIUM 138 mmol/L (135-144)
[2017-11-18 16:55] LABS: BASOPHILS % 0.2 % (0.0-2.0); EOSINOPHILS # 0.1 10^3/ul (0.0-0.5); EOSINOPHILS % 2.8 % (0.0-7.0); HEMATOCRIT 27.6 % (42.0-52.0); HEMOGLOBIN 9.3 g/dl (14.0-18.0); LYMPHOCYTES # 2.7 10^3/ul (0.8-2.9); LYMPHOCYTES % 55.4 % (15.0-51.0); MEAN CORPUSCULAR HEMOGLOBIN 30.1 pg (29.0-33.0); MEAN CORPUSCULAR HGB CONC 33.7 g/dl (32.0-37.0); MEAN CORPUSCULAR VOLUME 89.3 fl (82.0-101.0); MEAN PLATELET VOLUME 12.5 fl (7.4-10.4); MONOCYTE # 0.4 10^3/ul (0.3-0.9); MONOCYTES % 8.9 % (0.0-11.0); NEUTROPHIL # 1.6 10^3/ul (1.6-7.5); NEUTROPHILS % 32.5 % (39.0-77.0); PLATELET COUNT 115 10^3/UL (140-415); RED BLOOD COUNT 3.09 10^6/ul (4.70-6.10)
[2017-11-19] MEDS: ACCU-CHEK XX (02:00)
[2017-11-19] MEDS: SOD CHLORIDE 0.9% 1,000 ML IV ×2 (03:35→15:00)
[2017-11-19 05:43] LABS: ADD MAN DIFF? NO
[2017-11-19 05:46] LABS: WHITE BLOOD COUNT 4.3 10^3/ul (4.8-10.8)
[2017-11-19 05:46] LABS: BASOPHILS % 0.2 % (0.0-2.0); EOSINOPHILS # 0.2 10^3/ul (0.0-0.5); EOSINOPHILS % 4.7 % (0.0-7.0); HEMATOCRIT 28.7 % (42.0-52.0); HEMOGLOBIN 9.7 g/dl (14.0-18.0); LYMPHOCYTES # 2.1 10^3/ul (0.8-2.9); LYMPHOCYTES % 49.5 % (15.0-51.0); MEAN CORPUSCULAR HEMOGLOBIN 30.1 pg (29.0-33.0); MEAN CORPUSCULAR HGB CONC 33.8 g/dl (32.0-37.0); MEAN CORPUSCULAR VOLUME 89.1 fl (82.0-101.0); MEAN PLATELET VOLUME 12.6 fl (7.4-10.4); MONOCYTE # 0.5 10^3/ul (0.3-0.9); MONOCYTES % 11.2 % (0.0-11.0); NEUTROPHIL # 1.5 10^3/ul (1.6-7.5); NEUTROPHILS % 34.2 % (39.0-77.0); PLATELET COUNT 124 10^3/UL (140-415); RED BLOOD COUNT 3.22 10^6/ul (4.70-6.10); RED CELL DISTRIBUTION WIDTH 12.5 % (11.5-14.5)
[2017-11-19 06:48] LABS: ANION GAP 8 (8-16); BLOOD UREA NITROGEN 8 mg/dl (7-20); CALCIUM 8.4 mg/dl (8.4-10.2); CARBON DIOXIDE 20 mmol/L (21-31); CHLORIDE 114 mmol/L (97-110); CREATININE 0.77 mg/dl (0.61-1.24); GLUCOSE 83 mg/dl (70-220); SODIUM 138 mmol/L (135-144)
[2017-11-19] MEDS: ENOXAPARIN 30 MG/0.3 ML SYG SC (07:59)
[2017-11-19] MEDS: FAMOTIDINE 20 MG INJ IV ×2 (07:59→21:21)
[2017-11-19] MEDS: INSULIN ASPART [NOVOLOG] 3 ML PEN SC ×5 (08:00→21:00)
[2017-11-19] MEDS ORDERED: HYDROCORTISONE 5 MG TAB PO (21:00)
[2017-11-19] MEDS: HYDROCORTISONE 5 MG TAB PO (21:21)
[2017-11-19] MEDS: INSULIN GLARGINE [LANTus] (100 UNITS/ML) SYG SC (22:37)
[2017-11-20] MEDS: SOD CHLORIDE 0.9% 1,000 ML IV ×2 (01:43→11:00)
[2017-11-20] MEDS: ACCU-CHEK XX (02:00)
[2017-11-20 06:18] LABS: ADD MAN DIFF? NO
[2017-11-20 06:30] LABS: BASOPHILS % 0.2 % (0.0-2.0); EOSINOPHILS # 0.2 10^3/ul (0.0-0.5); EOSINOPHILS % 4.2 % (0.0-7.0); HEMOGLOBIN 10.1 g/dl (14.0-18.0); LYMPHOCYTES # 1.7 10^3/ul (0.8-2.9); LYMPHOCYTES % 34.6 % (15.0-51.0); MEAN CORPUSCULAR HEMOGLOBIN 30.1 pg (29.0-33.0); MEAN CORPUSCULAR HGB CONC 34.8 g/dl (32.0-37.0); MEAN CORPUSCULAR VOLUME 86.6 fl (82.0-101.0); MEAN PLATELET VOLUME 12.1 fl (7.4-10.4); MONOCYTE # 0.4 10^3/ul (0.3-0.9); MONOCYTES % 8.6 % (0.0-11.0); NEUTROPHIL # 2.6 10^3/ul (1.6-7.5); NEUTROPHILS % 52.2 % (39.0-77.0); PLATELET COUNT 130 10^3/UL (140-415); RED BLOOD COUNT 3.35 10^6/ul (4.70-6.10); RED CELL DISTRIBUTION WIDTH 11.9 % (11.5-14.5)
[2017-11-20] MEDS: INSULIN ASPART [NOVOLOG] 3 ML PEN SC ×4 (08:00→11:42)
[2017-11-20] MEDS: FAMOTIDINE 20 MG INJ IV (08:10)
[2017-11-20] MEDS: ENOXAPARIN 30 MG/0.3 ML SYG SC (08:11)
[2017-11-20] MEDS: HYDROCORTISONE 5 MG TAB PO ×5 (08:11→12:29)
[2017-11-20] MEDS ORDERED: HYDROCORTISONE 5 MG TAB PO ×2 (09:00→11:30)
[2017-11-20 09:14] LABS: ANION GAP 16 (8-16); BLOOD UREA NITROGEN 4 mg/dl (7-20); CALCIUM 8.5 mg/dl (8.4-10.2); CARBON DIOXIDE 20 mmol/L (21-31); CHLORIDE 108 mmol/L (97-110); CREATININE 0.72 mg/dl (0.61-1.24); GLUCOSE 78 mg/dl (70-220); POTASSIUM 3.8 mmol/L (3.5-5.1); SODIUM 140 mmol/L (135-144)
[2017-11-21 15:17] LABS: THYROID MICROSOMAL ANTIBODY 742 IU/mL (<9)
== END 2017-11-20 15:50 | disposition home or self-care (01) | DRG 638 ==
LOC: E/R 00:44 → 6WM 03:25
PROVIDERS: Internal Medicine
DX: E10.10 Type 1 diabetes mellitus with ketoacidosis without coma (principal); E27.40 Unspecified adrenocortical insufficiency; E31.0 Autoimmune polyglandular failure
CPT/HCPCS: 36415; 80048; 80053; 81003; 82803; 82962; 83036; 83605; 83690; 83735; 84100; 84439; 84443; 85025; 86376; 86800; 87040; 93005; 96361; 96374; 96375; 99291-25

== ENCOUNTER 2018-07-07 19:19 | Inpatient (IN) | payer OTHER ==
[2018-07-07 20:01] LABS: ADD MAN DIFF? NO
[2018-07-07] MEDS: SOD CHLORIDE 0.9% 660 ML IV (20:02)
[2018-07-07] MEDS: ONDANSETRON 4 MG INJ IV ×2 (20:02→21:45)
[2018-07-07 20:17] LABS: WHITE BLOOD COUNT 12.7 10^3/ul (4.8-10.8)
[2018-07-07 20:17] LABS: BASOPHILS % 0.2 % (0.0-2.0); EOSINOPHILS # 0.1 10^3/ul (0.0-0.5); EOSINOPHILS % 0.9 % (0.0-7.0); HEMATOCRIT 40.1 % (42.0-52.0); HEMOGLOBIN 13.3 g/dl (14.0-18.0); LYMPHOCYTES # 2.9 10^3/ul (0.8-2.9); LYMPHOCYTES % 22.8 % (15.0-51.0); MEAN CORPUSCULAR HEMOGLOBIN 30.2 pg (29.0-33.0); MEAN CORPUSCULAR HGB CONC 33.2 g/dl (32.0-37.0); MEAN CORPUSCULAR VOLUME 91.1 fl (82.0-101.0); MEAN PLATELET VOLUME 12.9 fl (7.4-10.4); MONOCYTE # 0.4 10^3/ul (0.3-0.9); MONOCYTES % 3.5 % (0.0-11.0); NEUTROPHIL # 9.2 10^3/ul (1.6-7.5); NEUTROPHILS % 72.3 % (39.0-77.0); PLATELET COUNT 250 10^3/UL (140-415); RED CELL DISTRIBUTION WIDTH 12.7 % (11.5-14.5)
[2018-07-07 20:20] LABS: ANION GAP 24 (5-13); BLOOD UREA NITROGEN 40 mg/dl (7-20); CALCIUM 10.3 mg/dl (8.4-10.2); CHLORIDE 101 mmol/L (97-110); CREATININE 2.39 mg/dl (0.61-1.24); Estimated GFR 34 mL/min (>60); GLUCOSE 291 mg/dl (70-220); MAGNESIUM 1.6 mg/dl (1.7-2.5); PHOSPHORUS 6.6 mg/dl (2.5-4.9); SODIUM 135 mmol/L (135-144)
[2018-07-07 20:21] LABS: MODE ROOM AIR; MetHgb Venous 0.3 %; Sample Type Blood venous; Site VENOUS LINE; Venous COHb 0.3 %; Venous Fraction OxyHgb 57.5 %; Venous Oxygen Sat 57.8 mmHG (55.0-75.0); Venous Total Hemglobin 11.7 g/dl
[2018-07-07 20:29] LABS: CARBON DIOXIDE 10 mmol/L (21-31)
[2018-07-07 20:32] LABS: POTASSIUM 6.3 mmol/L (3.5-5.1)
[2018-07-07] MEDS ORDERED: D10/0.45% NACL + KCL 30 MEQ 1,000 ML IV (20:32)
[2018-07-07] MEDS ORDERED: D10/0.45% NACL + KCL 40 MEQ 1,000 ML IV ×2 (20:32→21:19)
[2018-07-07] MEDS ORDERED: NS + KCL 40 MEQ 1,000 ML IV ×2 (20:32→21:19)
[2018-07-07] MEDS ORDERED: NS + KCL 30 MEQ 1,000 ML IV (20:32)
[2018-07-07] MEDS: SOD CHLORIDE 0.9% 1,000 ML IV (20:47)
[2018-07-07] MEDS: LACTATED RINGER'S 660 ML IV (20:47)
[2018-07-07 20:57] LABS: HEMOGLOBIN A1C 6.3 % (0-5.9)
[2018-07-07] MEDS: DEXTROSE 10%/0.45% NACL 1,000 ML IV (20:59)
[2018-07-07] MEDS ORDERED: DEXTROSE 50% 50 ML SYRINGE IV ×4 (21:00→21:30)
[2018-07-07] MEDS: INSULIN REGULAR, HUMAN 100 UNIT in SOD CHLORIDE 0.9% 100 ML IV (21:00)
[2018-07-07 21:18] LABS: ADD UMIC YES; UR ASCORBIC ACID NEGATIVE (NEGATIVE); UR BACTERIA FEW /HPF (NONE SEEN); UR BILIRUBIN (Dip) NEGATIVE (NEGATIVE); UR BLOOD (Dip) 1+ mg/dL (NEGATIVE); UR CLARITY SLIGHTLY CLOUDY (CLEAR); UR COLOR YELLOW (YELLOW); UR GLUCOSE (Dip) 2+ mg/dL (NEGATIVE); UR KETONES (Dip) 2+ mg/dL (NEGATIVE); UR LEUKOCYTE ESTERASE (Dip) NEGATIVE Leu/ul (NEGATIVE); UR MUCUS FEW /HPF (NONE SEEN); UR NITRITE (Dip) NEGATIVE (NEGATIVE); UR RBC 3 /HPF (0-5); UR SPECIFIC GRAVITY (Dip) 1.013 (1.003-1.030); UR TOTAL PROTEIN (Dip) NEGATIVE (NEGATIVE); UR UROBILINOGEN (Dip) NEGATIVE (NEGATIVE); UR WBC 3 /HPF (0-5)
[2018-07-07] MEDS: HYDROCORTISONE 100 MG INJ IV (21:18)
[2018-07-07] MEDS ORDERED: morphine 2 MG INJ IV (21:30)
[2018-07-07] MEDS: ACCU-CHEK XX ×3 (21:30→23:30)
[2018-07-07] MEDS ORDERED: ACETAMINOPHEN 650MG/20.3ML CUP PO (21:30)
[2018-07-07 22:21] LABS: ANION GAP 18 (5-13); BLOOD UREA NITROGEN 38 mg/dl (7-20); CALCIUM 8.8 mg/dl (8.4-10.2); CHLORIDE 107 mmol/L (97-110); Estimated GFR 44 mL/min (>60); GLUCOSE 326 mg/dl (70-220); MAGNESIUM 1.4 mg/dl (1.7-2.5); PHOSPHORUS 5.4 mg/dl (2.5-4.9); SODIUM 134 mmol/L (135-144)
[2018-07-07 22:50] LABS: POTASSIUM 7.5 mmol/L (3.5-5.1)
[2018-07-07 22:51] LABS: CARBON DIOXIDE 9 mmol/L (21-31)
[2018-07-07 23:12] LABS: MODE ROOM AIR; MetHgb Venous 0.3 %; Sample Type Blood venous; Site VENOUS LINE; Venous COHb 0.3 %; Venous Fraction OxyHgb 70.7 %; Venous Oxygen Sat 71.1 mmHG (55.0-75.0)
[2018-07-08] MEDS: ACCU-CHEK XX ×14 (00:30→17:25)
[2018-07-08] MEDS: METOCLOPRAMIDE 10 MG INJ IV (00:39)
[2018-07-08 00:57] LABS: ANION GAP 16 (5-13); BLOOD UREA NITROGEN 39 mg/dl (7-20); CALCIUM 9.1 mg/dl (8.4-10.2); CARBON DIOXIDE 14 mmol/L (21-31); CHLORIDE 106 mmol/L (97-110); Estimated GFR 47 mL/min (>60); GLUCOSE 274 mg/dl (70-220); MAGNESIUM 1.4 mg/dl (1.7-2.5); PHOSPHORUS 2.7 mg/dl (2.5-4.9); SODIUM 136 mmol/L (135-144)
[2018-07-08 01:02] LABS: POTASSIUM 6.1 mmol/L (3.5-5.1)
[2018-07-08 01:18] LABS: MODE ROOM AIR; MetHgb Venous 0.5 %; Sample Type Blood venous; Site VENOUS LINE; Venous COHb 0.3 %; Venous Oxygen Sat 73.6 mmHG (55.0-75.0); Venous Total Hemglobin 13.2 g/dl
[2018-07-08] MEDS: MAGNESIUM SULFATE 2 GM/50 ML 50 ML IVPB (03:18)
[2018-07-08] MEDS: SOD CHLORIDE 0.9% 1,000 ML IV (03:37)
[2018-07-08] MEDS: SOD CHLORIDE 0.9% 250 ML IV ×3 (05:00→11:46)
[2018-07-08 05:01] LABS: ANION GAP 9 (5-13); BLOOD UREA NITROGEN 36 mg/dl (7-20); CARBON DIOXIDE 18 mmol/L (21-31); CHLORIDE 110 mmol/L (97-110); CREATININE 1.69 mg/dl (0.61-1.24); Estimated GFR 50 mL/min (>60); GLUCOSE 222 mg/dl (70-220); MAGNESIUM 1.4 mg/dl (1.7-2.5); PHOSPHORUS 1.7 mg/dl (2.5-4.9); POTASSIUM 4.7 mmol/L (3.5-5.1); SODIUM 137 mmol/L (135-144)
[2018-07-08 05:08] LABS: CALCIUM 8.9 mg/dl (8.4-10.2); MODE ROOM AIR; MetHgb Venous 0.4 %; Sample Type Blood venous; Site VENOUS LINE; Venous COHb 0.3 %; Venous Fraction OxyHgb 85.5 %; Venous Oxygen Sat 86.1 mmHG (55.0-75.0); Venous Total Hemglobin 10.5 g/dl
[2018-07-08] MEDS: DEXTROSE 10%/0.45% NACL 1,000 ML IV (05:35)
[2018-07-08] MEDS: D10/0.45% NACL + KCL 30 MEQ 1,000 ML IV (07:40)
[2018-07-08] MEDS: NS + KCL 30 MEQ 1,000 ML IV (08:10)
[2018-07-08] MEDS: FAMOTIDINE 20 MG INJ IV ×2 (08:14→20:56)
[2018-07-08] MEDS: ENOXAPARIN 30 MG/0.3 ML SYG SC (08:16)
[2018-07-08] MEDS: INSULIN GLARGINE [LANTus] (100 UNITS/ML) SYG SC (08:16)
[2018-07-08 09:37] LABS: ANION GAP 6 (5-13); BLOOD UREA NITROGEN 33 mg/dl (7-20); CARBON DIOXIDE 18 mmol/L (21-31); CHLORIDE 112 mmol/L (97-110); CREATININE 1.52 mg/dl (0.61-1.24); Estimated GFR 57 mL/min (>60); GLUCOSE 186 mg/dl (70-220); PHOSPHORUS 1.5 mg/dl (2.5-4.9); POTASSIUM 5.1 mmol/L (3.5-5.1); SODIUM 136 mmol/L (135-144)
[2018-07-08] MEDS: INSULIN REGULAR, HUMAN 100 UNIT in SOD CHLORIDE 0.9% 100 ML IV (09:48)
[2018-07-08] MEDS: INSULIN ASPART [NOVOLOG] 3 ML PEN SC ×5 (12:30→20:54)
[2018-07-08] MEDS ORDERED: GLUCOSE GEL 15 GRAM TUBE PO (14:00)
[2018-07-08] MEDS ORDERED: GLUCOSE GEL 15 GRAM TUBE BUCCAL (14:00)
[2018-07-08] MEDS ORDERED: DEXTROSE 50% 50 ML SYRINGE IV ×2 (14:00)
[2018-07-08] MEDS ORDERED: GLUCAGON 1 MG INJ IM (14:00)
[2018-07-08] MEDS: HYDROCORTISONE 20 MG TAB PO (20:51)
[2018-07-08 20:52] LABS: ANION GAP 6 (5-13); BLOOD UREA NITROGEN 26 mg/dl (7-20); CALCIUM 8.4 mg/dl (8.4-10.2); CARBON DIOXIDE 18 mmol/L (21-31); CHLORIDE 113 mmol/L (97-110); CREATININE 1.35 mg/dl (0.61-1.24); Estimated GFR > 60 mL/min (>60); GLUCOSE 78 mg/dl (70-220); MAGNESIUM 1.6 mg/dl (1.7-2.5); PHOSPHORUS 3.3 mg/dl (2.5-4.9); POTASSIUM 4.6 mmol/L (3.5-5.1); SODIUM 137 mmol/L (135-144)
[2018-07-08] MEDS: HYDROCORTISONE 5 MG TAB PO (20:52)
[2018-07-09] MEDS: ACCU-CHEK XX ×4 (02:00→17:25)
[2018-07-09 05:11] LABS: ADD MAN DIFF? NO
[2018-07-09 05:18] LABS: WHITE BLOOD COUNT 4.9 10^3/ul (4.8-10.8)
[2018-07-09 05:18] LABS: EOSINOPHILS # 0.1 10^3/ul (0.0-0.5); HEMATOCRIT 26.1 % (42.0-52.0); HEMOGLOBIN 8.9 g/dl (14.0-18.0); LYMPHOCYTES # 2.1 10^3/ul (0.8-2.9); LYMPHOCYTES % 43.2 % (15.0-51.0); MEAN CORPUSCULAR HEMOGLOBIN 30.7 pg (29.0-33.0); MEAN CORPUSCULAR HGB CONC 34.1 g/dl (32.0-37.0); MEAN PLATELET VOLUME 12.9 fl (7.4-10.4); MONOCYTE # 0.4 10^3/ul (0.3-0.9); MONOCYTES % 7.4 % (0.0-11.0); NEUTROPHIL # 2.4 10^3/ul (1.6-7.5); NEUTROPHILS % 48.2 % (39.0-77.0); PLATELET COUNT 125 10^3/UL (140-415); RED CELL DISTRIBUTION WIDTH 13.3 % (11.5-14.5)
[2018-07-09 06:45] LABS: ANION GAP 7 (5-13); BLOOD UREA NITROGEN 24 mg/dl (7-20); CALCIUM 8.3 mg/dl (8.4-10.2); CARBON DIOXIDE 16 mmol/L (21-31); CHLORIDE 112 mmol/L (97-110); CREATININE 1.14 mg/dl (0.61-1.24); Estimated GFR > 60 mL/min (>60); GLUCOSE 298 mg/dl (70-220); MAGNESIUM 1.5 mg/dl (1.7-2.5); PHOSPHORUS 3.1 mg/dl (2.5-4.9); SODIUM 135 mmol/L (135-144)
[2018-07-09 06:46] LABS: ADD MAN DIFF? NO
[2018-07-09 06:49] LABS: POTASSIUM 6.4 mmol/L (3.5-5.1)
[2018-07-09 06:54] LABS: BASOPHILS % 0.2 % (0.0-2.0); EOSINOPHILS # 0.1 10^3/ul (0.0-0.5); EOSINOPHILS % 1.7 % (0.0-7.0); HEMATOCRIT 27.6 % (42.0-52.0); HEMOGLOBIN 9.1 g/dl (14.0-18.0); LYMPHOCYTES # 2.2 10^3/ul (0.8-2.9); LYMPHOCYTES % 45.7 % (15.0-51.0); MEAN CORPUSCULAR HEMOGLOBIN 30.3 pg (29.0-33.0); MEAN PLATELET VOLUME 12.2 fl (7.4-10.4); MONOCYTE # 0.4 10^3/ul (0.3-0.9); MONOCYTES % 8.9 % (0.0-11.0); NEUTROPHIL # 2.1 10^3/ul (1.6-7.5); NEUTROPHILS % 43.5 % (39.0-77.0); PLATELET COUNT 133 10^3/UL (140-415); RED CELL DISTRIBUTION WIDTH 13.2 % (11.5-14.5)
[2018-07-09 06:54] LABS: WHITE BLOOD COUNT 4.8 10^3/ul (4.8-10.8)
[2018-07-09 07:10] LABS: ANION GAP 8 (5-13); BLOOD UREA NITROGEN 23 mg/dl (7-20); CALCIUM 8.6 mg/dl (8.4-10.2); CARBON DIOXIDE 17 mmol/L (21-31); CHLORIDE 112 mmol/L (97-110); CREATININE 1.12 mg/dl (0.61-1.24); Estimated GFR > 60 mL/min (>60); GLUCOSE 275 mg/dl (70-220); POTASSIUM 4.9 mmol/L (3.5-5.1); SODIUM 137 mmol/L (135-144)
[2018-07-09 07:33] LABS: IRON 52 ug/dl (35-150)
[2018-07-09] MEDS: INSULIN ASPART [NOVOLOG] 3 ML PEN SC ×7 (07:34→21:00)
[2018-07-09 07:43] LABS: % IRON SATURATION 24 % SAT (22-52); TOTAL IRON BINDING CAPACITY 213 ug/dl (241-421)
[2018-07-09] MEDS: INSULIN GLARGINE [LANTus] (100 UNITS/ML) SYG SC (07:45)
[2018-07-09] MEDS: ENOXAPARIN 30 MG/0.3 ML SYG SC (07:49)
[2018-07-09] MEDS: HYDROCORTISONE 5 MG TAB PO ×3 (07:56→21:21)
[2018-07-09] MEDS: FAMOTIDINE 20 MG INJ IV ×2 (07:56→21:22)
[2018-07-09] MEDS: GLUCOSE GEL 15 GRAM TUBE PO (17:37)
[2018-07-09] MEDS: MAGNESIUM SULFATE 2 GM/50 ML 50 ML IVPB (18:45)
[2018-07-10] MEDS: ACCU-CHEK XX ×4 (01:06→17:38)
[2018-07-10 06:34] LABS: ADD MAN DIFF? NO
[2018-07-10 06:38] LABS: BASOPHILS % 0.2 % (0.0-2.0); EOSINOPHILS # 0.2 10^3/ul (0.0-0.5); EOSINOPHILS % 2.9 % (0.0-7.0); HEMATOCRIT 29.5 % (42.0-52.0); HEMOGLOBIN 9.8 g/dl (14.0-18.0); LYMPHOCYTES # 3.1 10^3/ul (0.8-2.9); MEAN CORPUSCULAR HEMOGLOBIN 30.3 pg (29.0-33.0); MEAN CORPUSCULAR HGB CONC 33.2 g/dl (32.0-37.0); MEAN CORPUSCULAR VOLUME 91.3 fl (82.0-101.0); MEAN PLATELET VOLUME 12.3 fl (7.4-10.4); MONOCYTE # 0.4 10^3/ul (0.3-0.9); MONOCYTES % 7.9 % (0.0-11.0); NEUTROPHIL # 1.7 10^3/ul (1.6-7.5); PLATELET COUNT 145 10^3/UL (140-415); RED BLOOD COUNT 3.23 10^6/ul (4.70-6.10); RED CELL DISTRIBUTION WIDTH 13.1 % (11.5-14.5)
[2018-07-10 06:38] LABS: WHITE BLOOD COUNT 5.4 10^3/ul (4.8-10.8)
[2018-07-10 06:59] LABS: MAGNESIUM 1.6 mg/dl (1.7-2.5)
[2018-07-10 07:02] LABS: ALANINE AMINOTRANSFERASE 17 IU/L (13-69); ALBUMIN 3.2 g/dl (3.3-4.9); ALBUMIN/GLOBULIN RATIO 1.06; ALKALINE PHOSPHATASE 50 IU/L (42-121); ANION GAP 8 (5-13); ASPARTATE AMINO TRANSFERASE 19 IU/L (15-46); BILIRUBIN,INDIRECT 0.4 mg/dl (0-1.1); BILIRUBIN,TOTAL 0.4 mg/dl (0.2-1.3); BLOOD UREA NITROGEN 14 mg/dl (7-20); CALCIUM 8.7 mg/dl (8.4-10.2); CARBON DIOXIDE 20 mmol/L (21-31); CHLORIDE 114 mmol/L (97-110); CREATININE 0.88 mg/dl (0.61-1.24); Estimated GFR > 60 mL/min (>60); GLUCOSE 142 mg/dl (70-220); POTASSIUM 3.9 mmol/L (3.5-5.1); SODIUM 142 mmol/L (135-144); TOTAL PROTEIN 6.2 g/dl (6.1-8.1)
[2018-07-10] MEDS: INSULIN ASPART [NOVOLOG] 3 ML PEN SC ×6 (08:00→18:04)
[2018-07-10] MEDS: INSULIN GLARGINE [LANTus] (100 UNITS/ML) SYG SC (08:15)
[2018-07-10] MEDS: ENOXAPARIN 30 MG/0.3 ML SYG SC (08:15)
[2018-07-10] MEDS: HYDROCORTISONE 5 MG TAB PO ×2 (08:15→18:05)
[2018-07-10] MEDS: FAMOTIDINE 20 MG INJ IV (08:19)
[2018-07-10] MEDS: MAGNESIUM SULFATE 2 GM/50 ML 50 ML IVPB (10:00)
[2018-07-10] MEDS: EPOETIN ALFA-EPBX (NON-ESRD 10,000 UNIT/ML VIAL SC (18:01)
== END 2018-07-10 19:02 | disposition home or self-care (01) | DRG 638 ==
LOC: E/R 19:19 → PP2 07-09 12:15 → ICU 20:39
PROVIDERS: Internal Medicine
DX: E10.10 Type 1 diabetes mellitus with ketoacidosis without coma (principal); E27.40 Unspecified adrenocortical insufficiency; R65.10 Systemic inflammatory response syndrome (SIRS) of non-infectious origin without acute organ dysfunction; N17.9 Acute kidney failure, unspecified; E83.39 Other disorders of phosphorus metabolism; E83.42 Hypomagnesemia; E87.5 Hyperkalemia; Z96.41 Presence of insulin pump (external) (internal); E03.9 Hypothyroidism, unspecified; D64.9 Anemia, unspecified
CPT/HCPCS: 36415; 80048; 80053; 81001; 82607; 82803; 82962; 83036; 83540; 83735; 84100; 85025; 87081; 93005; 96374; 99285-25